=== PATIENT | female | born 1955 | race Caucasian/White ===

== ENCOUNTER 2018-02-10 06:58 | Day surgery (SDC) | payer OTHER ==
[~2018-02-10 06:58] MED LIST: COZAAR25 MG PO; ENBREL50 MG/1 M2; GABAPENTIN400 MG PO; LIPITOR20 MG PO; POTASSIUM CIT2500 GM
== END 2018-02-10 10:50 | disposition home or self-care (01) ==
LOC: CIR.AMB 06:58
DX: M65.332 Trigger finger, left middle finger (principal)